=== PATIENT | female | born 1935 | race Native Hawaiian/Other Pacific Islander ===

== ENCOUNTER 2021-09-11 15:34 | Outpatient (CLI) | payer OTHER ==
[2021-09-11 16:19] LABS: PLATELET COUNT 202 K/uL (152-353)
[2021-09-11 16:50] LABS: POTASSIUM 4.1 mmol/L (3.6-5.2)
== END 2021-09-11 19:32 | disposition home or self-care (01) ==
LOC: RAD 15:34
PROVIDERS: ATTEND Nurse Practitioner Family
DX: J06.9 Acute upper respiratory infection, unspecified (principal)
CPT/HCPCS: 36415; 80053; 85027

== ENCOUNTER 2022-07-20 14:04 | Emergency (ER) | payer OTHER ==
[~2022-07-20] VITALS: Ht 160 cm; Wt 69.9 kg
[2022-07-20 14:09] VITALS: TEMP 98.3
[2022-07-20 14:33] LABS: POTASSIUM 4.6 mmol/L (3.6-5.2)
[2022-07-20 14:49] LABS: PARTIAL THROMBOPLASTIN TIME 24.1 SECONDS (24.5-33.6)
[2022-07-20 15:34] LABS: PLATELET COUNT 218 K/uL (152-353)
[2022-07-20 15:56] VITALS: BP 158/80
== END 2022-07-20 16:00 | disposition home or self-care (01) ==
LOC: ED 14:04
PROVIDERS: Emergency Medicine
DX: J32.8 Other chronic sinusitis (principal); I10 Essential (primary) hypertension; R06.02 Shortness of breath
CPT/HCPCS: 80053; 83880; 84484; 85027; 85610; 85730; 87502; 93005; 96365; 96372; 99284; J0696; J1100

== ENCOUNTER → 2022-07-24 | Emergency (ER) | payer OTHER ==
[~2022-07-24] VITALS: Ht 160 cm; Wt 69.9 kg
[2022-07-24 17:10] LABS: PLATELET COUNT 232 K/uL (152-353)
[2022-07-24 17:18] LABS: POTASSIUM 4.2 mmol/L (3.6-5.2)
[2022-07-24 17:48] LABS: PARTIAL THROMBOPLASTIN TIME 24.1 SECONDS (24.5-33.6)
[2022-07-24 20:50] VITALS: BP 140/74; TEMP 98
== END ==
LOC: ED 15:54
PROVIDERS: Family Medicine
DX: J32.8 Other chronic sinusitis (principal); I10 Essential (primary) hypertension; Z79.2 Long term (current) use of antibiotics; Z51.81 Encounter for therapeutic drug level monitoring
CPT/HCPCS: 80053; 82550; 84484; 85027; 85610; 85730; 93005; 99283

== ENCOUNTER 2022-12-17 13:58 | Outpatient (CLI) | payer OTHER | END 2022-12-17 19:03 | disposition home or self-care (01) | LOC: RAD 13:58 | PROVIDERS: ATTEND Nurse Practitioner Primary Care | DX: Z13.820 Encounter for screening for osteoporosis (principal); N95.8 Other specified menopausal and perimenopausal disorders ==

== ENCOUNTER 2023-02-03 15:52 | Outpatient (CLI) | payer OTHER ==
[2023-02-03 16:29] LABS: POTASSIUM 4.2 mmol/L (3.6-5.2)
== END 2023-02-03 19:24 | disposition home or self-care (01) ==
LOC: RAD 15:52
PROVIDERS: ATTEND Nurse Practitioner Family
DX: M25.572 Pain in left ankle and joints of left foot (principal)
CPT/HCPCS: 36415; 80053; 84550; 85379

== ENCOUNTER 2023-05-28 15:54 | Outpatient (CLI) | payer OTHER | END 2023-05-28 20:03 | disposition home or self-care (01) | LOC: RAD 15:54 | PROVIDERS: ATTEND Family Medicine | DX: R05.9 Cough, unspecified (principal) ==